=== PATIENT | female | born 1950 | race Caucasian/White ===

== ENCOUNTER 2016-11-25 12:36 | Outpatient (CLI) | payer OTHER ==
--- NOTE | 2016-11-25 16:50 | MMO ---
SCREENING LEFT MAMMOGRAM: Date: 11/25/16 CLINICAL HISTORY: Prior right mastectomy. Screening evaluation of left breast. No prior comparisons are available. Interpreted as a baseline exam. This patient's mammogram was interpreted with the assistance of computer-aided detection. FINDINGS: Indwelling left breast implant limits sensitivity and could obscure underlying pathology. There is a benign calcification within the left breast. No dominant mass or suspicious clustering of microcalc ification. IMPRESSION: BIRADS 2: Benign Finding(s) Annual screening mammography is recommended. POS: [facility]
== END 2016-11-25 12:37 | disposition home or self-care (01) ==
LOC: MAMMO 12:36
PROVIDERS: ATTEND Family Medicine
DX: Z12.31 Encounter for screening mammogram for malignant neoplasm of breast (principal)
CPT/HCPCS: 77067; G0202

== ENCOUNTER 2017-05-27 08:19 | Outpatient (CLI) | payer OTHER ==
[2017-05-27] MEDS ORDERED: Iopamidol 370 76% 100 ML VIAL ONE (14:26)
== END 2017-05-27 08:20 | disposition home or self-care (01) ==
LOC: BICCT 08:19
PROVIDERS: ATTEND Family Medicine
DX: K57.30 Diverticulosis of large intestine without perforation or abscess without bleeding; R31.29 Other microscopic hematuria; R35.0 Frequency of micturition; N95.2 Postmenopausal atrophic vaginitis
CPT/HCPCS: 74178